=== PATIENT | female | born 1990 | race Caucasian/White ===

== ENCOUNTER 2018-12-26 10:51 | Emergency (ER) | payer MEDICAID ==
[2018-12-26] MEDS ORDERED: 0.9 % SODIUM CHLORIDE 1,000 ML BAG IV ONE (11:20)
[2018-12-26] MEDS ORDERED: ONDANSETRON HCL IV 4 MG/2 ML VIAL IVP ONE (11:20)
--- NOTE | 2018-12-26 11:24 | Emergency Department Record ---
History of Present Illness - General Chief complaint: Female Urogenital Problem Stated complaint: UTI/SINUS Time Seen by Provider: 12/26/18 10:57 Source: Patient Mode of Arrival: Ambulatory Limitations: No limitations - History of Present Illness Initial comments: 28 yo female presents with nausea, vomiting and diarrhea two days. He has had congestion, runny nose, and cough. She was treated in the [facility] but she continues to vomit and the diarrhea is new this morning. No fever. Mild headache. No sore throat. She had a bloody nose that resolved. Her ear still feel full and congested. Onset/Timin -: Days(s) Radiation: Other Severity: Moderate Quality: Other Improves with: None Worsens with: None Associated Symptoms: Abdominal pain, Loss of appetite, Nausea/vomiting, Other (diarrhea) - Related Data Previous Rx's Medication Instructions Recorded Ondansetron [Zofran Odt] 4 mg PO Q8H #20 tab.rapdis 12/26/18 Allergies Allergy/AdvReac Type Severity Reaction Status Date / Time red dye Allergy rash Verified 12/26/18 10:59 acetaminophen [From Tylenol] AdvReac vomiting Verified 12/26/18 10:59 Travel Screening - Travel/Exposure Within Last 30 Days Have you traveled within the last 30 days?: No Review of Systems Constitutional: Reports: Malaise, Weakness. Denies: Chills Eyes: Denies: Eye discharge, Eye pain, Photophobia, Vision change ENT: Reports: Congestion, Ear pain. Denies: Throat pain Respiratory: Reports: Cough. Denies: Dyspnea, Hemoptysis, Stridor, Wheezes Cardiovascular: Denies: Chest pain, Dyspnea on exertion, Palpitations, Syncope Endocrine: Reports: Fatigue. Denies: Polydipsia, Polyuria Gastrointestinal: Reports: Diarrhea, Nausea, Vomiting. Denies: Abdominal pain, Constipation, Hematemesis, Hematochezia, Melena Genitourinary: Reports: Dysuria. Denies: Urgency Musculoskeletal: Denies: Arthralgia, Back pain, Myalgia Skin: Denies: Bruising, Change in color, Rash Neurological: Reports: Headache, Vertigo. Denies: Confusion, Numbness, Tingling, Tremors, Weakness Psychiatric: Denies: Anxiety Hematological/Lymphatic: Denies: Blood Clots, Easy bleeding, Easy bruising, Swollen glands Past Medical History - SOCIAL HISTORY Smoking Status: Current every day smoker Alcohol Use: None Drug Use: None - RESPIRATORY Hx Respiratory Disorders: No - CARDIOVASCULAR Hx Cardio Disorders: No - NEURO Hx Neuro Disorders: No - GI Hx GI Disorders: Yes Hx Abdominal Pain: Yes - Hx Genitourinary Disorders: Yes Hx UTI: Yes - ENDOCRINE Hx Endocrine Disorders: No - MUSCULOSKELETAL Hx Musculoskeletal Disorders: Yes - PSYCH Hx Psych Problems: No - HEMATOLOGY/ONCOLOGY Hx Hematology/Oncology Disorders: No Family Medical History Any Significant Family History?: Yes Hx Cancer: Mother, Grandparents Physical Exam - General General Appearance: Alert, Oriented x3, Cooperative, No acute distress Limitations: No limitations - Head Head exam: Atraumatic, Normal inspection - Eye Eye exam: Normal appearance, PERRL. negative: Conjunctival injection, Scleral icterus - ENT ENT exam: Mucous membranes dry, Normal orophraynx, TM's normal bilaterally Ear exam: Normal external inspection Nasal Exam: Discharge, Sinus tenderness. negative: Active bleeding, Dried blood Mouth exam: Normal external inspection Teeth exam: Normal inspection Throat exam: Normal inspection. negative: Tonsillar erythema, Tonsillomegaly, Tonsillar exudate, R peritonsillar mass, L peritonsillar mass - Neck Neck exam: Normal inspection. negative: Lymphadenopathy - Respiratory Respiratory exam: Normal lung sounds bilaterally. negative: Respiratory distress - Cardiovascular Cardiovascular Exam: Regular rate, Normal rhythm, Normal heart sounds - GI/Abdominal GI/Abdominal exam: Soft. negative: Tenderness - Rectal Rectal exam: Deferred - exam: Deferred - Extremities Extremities exam: Normal inspection. negative: Calf tenderness, Pedal edema, Tenderness - Back Back exam: Denies: CVA tenderness (R), CVA tenderness (L) - Neurological Neurological exam: Alert, Oriented X3 - Psychiatric Psychiatric exam: Normal affect, Normal mood - Skin Skin exam: Dry, Intact, Normal color, Warm Course Vital Signs 12/26/18 10:54 Temperature 97.6 F Pulse Rate 75 Respiratory 18 Rate Blood Pressure 111/74 Pulse Ox 99 - Reevaluation(s) Reevaluation #1: The vitals are normal on review 12/26/18 11:23 12/26/18 13:05 The labs results were reviewed There are no acute significant abnormalities of the CBC There are no acute significant abnormalities of the CMP The UA was reviewed. No signs of infection or significant acute abnormality We discussed the results of the tests and questions were answered at the time of discharge. The patient is doing well and is comfortable with DC. DC vitals were reviewed. We discussed at length reasons to immediately return to the ED as well as close follow up. The patient will call the PCP for close follow up of this ED visit to review this visit and the tests performed Medical Decision Making - Lab Data Result diagrams: 12/26/18 11:25 12/26/18 11:25 Disposition Disposition: Discharge Clinical Impression: Vomiting and diarrhea Disposition: Home, Self-Care Condition: (1) Good Instructions: Acute Nausea and Vomiting (ED), Acute Diarrhea (ED) Additional Instructions: Call your doctor for the next available follow up appointment Review this ER visit and the tests performed with your family doctor Return to the ER for a recheck if worse, any new concerns or questions Take the prescriptions provided as directed Prescriptions: Ondansetron [Zofran Odt] 4 mg PO Q8H #20 tab.rapdis Forms: Patient Portal Access Time of Disposition: 13:04 Quality - Quality Measures Quality Measures: N/A - Blood Pressure Screening Does Patient Have Any of the Following: No Blood Pressure Classification: Normal BP Reading Systolic Measurement: 111 Diastolic Measurement: 74 Screening for High Blood Pressure: < Normal BP, F/U Not Required > [G8783] Pre-Hypertensive Follow-up Interventions: Referral to alternative/primary care provider.
[2018-12-26 11:35] LABS: ABSOLUTE NEUTROPHIL COUNT 4.34; BASO % 0.3 % (0-6); EOS % 1.2 % (0-6); GRAN % 65.3 % (47-80); HEMATOCRIT 45.9 % (35.0-47.0); LYMPH % 28.2 % (16-45); MEAN CELL VOLUME 86.1 fl (81-97); MEAN CORPUSCULAR HEMOGLOBIN 28.1 pg (27-33); MEAN CORPUSCULAR HGB CONC 32.7 g/dl (32-36); PLATELET COUNT 258 K/uL (130-400); RED BLOOD COUNT 5.33 M/uL (3.80-5.40); RED CELL DISTRIBUTION WIDTH 12.9 % (11.5-14.5); WHITE BLOOD COUNT W/O DIFF 6.6 K/uL (4.2-12.2)
[2018-12-26 11:48] LABS: BLOOD UREA NITROGEN 7 mg/dL (6-20); CREATININE 0.9 mg/dL (0.5-0.9); EST GLOMERULAR FILTRATION RATE > 60 mL/min
[2018-12-26 11:49] LABS: TOTAL PROTEIN 8.2 g/dL (6.6-8.7)
[2018-12-26 11:51] LABS: GLUCOSE,RANDOM 97 mg/dL (74-109)
[2018-12-26 11:54] LABS: ALB/GLOB RATIO 1.2 (1.1-1.8); ALBUMIN 4.5 g/dL (4.0-5.0); ALKALINE PHOSPHATASE 66 U/L (35-104); ALT/SGPT 16 U/L (<33); AST/SGOT 17 U/L (10.0-35.0)
[2018-12-26 12:49] LABS: URINE APPEARANCE CLEAR; URINE BILIRUBIN NEGATIVE (NEGATIVE); URINE BLOOD NEGATIVE (NEGATIVE); URINE COLOR YELLOW; URINE GLUCOSE (UA) NEGATIVE (NEGATIVE); URINE KETONE NEGATIVE (NEGATIVE); URINE LEUKOCYTE ESTERASE NEGATIVE (NEGATIVE); URINE NITRITE NEGATIVE (NEGATIVE); URINE PROTEIN NEGATIVE (NEGATIVE); URINE UROBILINOGEN 0.2 E.U./dL (0.20 - 1.00)
== END 2018-12-26 13:18 | disposition home or self-care (01) ==
LOC: ER 10:51
DX: R11.2 Nausea with vomiting, unspecified (principal); R19.7 Diarrhea, unspecified; R05 Cough; R51 Headache; R10.9 Unspecified abdominal pain; F17.210 Nicotine dependence, cigarettes, uncomplicated
CPT/HCPCS: 99284 ×2; 96374; 96361; 85025; 80053; 81003; J2405; J7030

== ENCOUNTER 2018-12-28 12:05 | Emergency (ER) | payer MEDICAID ==
--- NOTE | 2018-12-28 12:16 | Emergency Department Record ---
History of Present Illness - General Chief complaint: Vomiting Stated complaint: VOMITING Time Seen by Provider: 12/28/18 12:12 Source: Patient, Family (mother) Mode of Arrival: Ambulatory Limitations: No limitations - History of Present Illness Initial comments: Pt to ED with her mother for a 10 day hx of vomiting. Pt states she vomits many times a day "white frothy acid tasting vomit". No blood in emesis. No diarrhea, no fever. No AP. Pt denies travel, new foods, new meds. She has no hx of DM. She does suffer with Fibromyalgia and "acid reflux". She has a recent non productive cough and admits to smoking 2-3 cigarettes a day along with marijuana twice a day for her Fibro pain. Pt seen her twice this week with IV and labs. Improved with IV fluids but hte Fátimafran is not helping at home. She has not followed with a family doctor since her visits. MD complaint: Vomiting Onset/Timin -: Days(s) Associated Abdominal Pain: No Consistency: Intermittent - Related Data Previous Rx's Medication Instructions Recorded Promethazine HCl [Phenergan] 25 mg RC TID PRN 4 Days #8 12/28/18 supp.rect Ranitidine HCl [Zantac] 150 mg PO BID 30 Days #60 tab 12/28/18 Allergies Allergy/AdvReac Type Severity Reaction Status Date / Time red dye Allergy rash Verified 12/26/18 10:59 acetaminophen [From Tylenol] AdvReac vomiting Verified 12/26/18 10:59 Review of Systems Constitutional: Denies: Chills, Fever, Weakness Eyes: Denies: Eye discharge, Photophobia ENT: Denies: Congestion, Ear pain Respiratory: Reports: Cough. Denies: Hemoptysis, Wheezes Cardiovascular: Denies: Arrhythmia, Chest pain, Syncope Endocrine: Denies: Fatigue, Polyuria Gastrointestinal: Reports: Nausea, Vomiting. Denies: Abdominal pain, Constipation, Diarrhea, Hematemesis Genitourinary: Denies: Abnormal menses Musculoskeletal: Denies: Back pain, Gout, Joint swelling Skin: Denies: Bruising, Rash Neurological: Denies: Confusion, Headache, Weakness Psychiatric: Denies: Anxiety, Depression Hematological/Lymphatic: Denies: Anemia Past Medical History - SOCIAL HISTORY Smoking Status: Current every day smoker Drug Use: None - RESPIRATORY Hx Respiratory Disorders: No - CARDIOVASCULAR Hx Cardio Disorders: No - NEURO Hx Neuro Disorders: No - GI Hx GI Disorders: Yes Hx Abdominal Pain: Yes - Hx Genitourinary Disorders: Yes Hx UTI: Yes - ENDOCRINE Hx Endocrine Disorders: No - MUSCULOSKELETAL Hx Musculoskeletal Disorders: Yes - PSYCH Hx Psych Problems: No - HEMATOLOGY/ONCOLOGY Hx Hematology/Oncology Disorders: No Family Medical History Hx Cancer: Mother, Grandparents Physical Exam - General General Appearance: Alert, Oriented x3, Cooperative, No acute distress - Head Head exam: Normal inspection - Eye Eye exam: Normal appearance, PERRL - ENT ENT exam: Mucous membranes moist Ear exam: Normal external inspection Nasal Exam: Normal inspection Mouth exam: Normal external inspection Throat exam: Normal inspection - Neck Neck exam: Normal inspection, Full ROM. negative: Lymphadenopathy - Respiratory Respiratory exam: Normal lung sounds bilaterally. negative: Rhonchi, Wheezes - Cardiovascular Cardiovascular Exam: Regular rate, Normal rhythm, Normal heart sounds. negative: Tachycardia - GI/Abdominal GI/Abdominal exam: Soft, Normal bowel sounds. negative: Guarding, Rebound, Tenderness - Extremities Extremities exam: Normal inspection. negative: Tenderness - Back Back exam: Reports: Normal inspection - Neurological Neurological exam: Alert, Normal gait, Oriented X3 - Psychiatric Psychiatric exam: Normal affect, Normal mood - Skin Skin exam: Normal color. negative: Rash Course - Reevaluation(s) Reevaluation #1: 12/28/18 13:10 Improved with phenergan. Discussed taking Zantac for reflux and clear liquid diet. Discussed need to establish a PMD and follow with them to provide continuity of care. Disposition Disposition: Discharge Clinical Impression: Vomiting alone Condition: (2) Stable Instructions: Acute Nausea and Vomiting (ED) Additional Instructions: Take meds a prescribed. Clear liquid diet advancing as tolerated. Establish a family doctor and see them in 2 days. Return to ED as needed. Prescriptions: Promethazine HCl [Phenergan] 25 mg RC TID PRN 4 Days #8 supp.rect PRN Reason: Nausea/Vomiting Ranitidine HCl [Zantac] 150 mg PO BID 30 Days #60 tab Forms: Patient Portal Access Quality - Quality Measures Quality Measures: N/A - Blood Pressure Screening Does Patient Have Any of the Following: No Blood Pressure Classification: Normal BP Reading Systolic Measurement: 116 Diastolic Measurement: 75 Screening for High Blood Pressure: < Normal BP, F/U Not Required > [G8783]
[2018-12-28] MEDS ORDERED: PROMETHAZINE HCL 25 MG/ML VIAL IM ONE (12:30)
== END 2018-12-28 13:22 | disposition home or self-care (01) ==
LOC: ER 12:05
DX: R11.10 Vomiting, unspecified (principal); F17.210 Nicotine dependence, cigarettes, uncomplicated
CPT/HCPCS: 96372; 99282; 99283; J2550

== ENCOUNTER 2019-01-18 14:58 | Emergency (ER) | payer MEDICAID ==
[2019-01-18] MEDS ORDERED: ONDANSETRON HCL IV 4 MG/2 ML VIAL IV ONE (15:14)
[2019-01-18] MEDS ORDERED: 0.9 % SODIUM CHLORIDE 1,000 ML BAG IV ONE (15:14)
--- NOTE | 2019-01-18 15:24 | Emergency Department Record ---
History of Present Illness - General Chief complaint: Nausea, Vomiting, Diarrhea Stated complaint: NAUSEA,VOMITING,LIGHTHEADED Time Seen by Provider: 01/18/19 15:07 Source: Patient Mode of Arrival: Ambulatory Limitations: No limitations - History of Present Illness Initial comments: The patient is here due to intermittent nausea, vomiting, diarrhea, and cramping AP for 4 days. She has had similar issues off and on for a month and was here in the ER twice for it last month. She denies any fever, chills, CP, SOB, vaginal discharge or dysuria. She has no hx of any abdominal surgeries. MD complaint: Abdominal pain, Diarrhea, Nausea, Vomiting Onset/Timin -: Days(s) Severity: Moderate Severity scale (1-10): 7 Quality: Aching Consistency: Constant, Intermittent Improves with: None Worsens with: None - Related Data Previous Rx's Medication Instructions Recorded Ranitidine HCl [Zantac] 150 mg PO BID 30 Days #60 tab 12/28/18 Promethazine HCl 25 mg RC TID #20 supp.rect 01/18/19 Ranitidine HCl [Zantac] 150 mg PO BID #28 tablet 01/18/19 Allergies Allergy/AdvReac Type Severity Reaction Status Date / Time red dye Allergy rash Verified 01/18/19 15:11 acetaminophen [From Tylenol] AdvReac vomiting Verified 01/18/19 15:11 Travel Screening - Travel/Exposure Within Last 30 Days Have you traveled within the last 30 days?: No - Travel/Exposure Within Last Year Have you traveled outside the [place] in the last year?: No - Additonal Travel Details Have you been exposed to anyone with a communicable illness?: No - Travel Symptoms Symptom Screening: None Review of Systems Constitutional: Denies: Chills, Fever Eyes: Denies: Eye discharge ENT: Denies: Congestion Respiratory: Denies: Cough, Dyspnea Past Medical History - SOCIAL HISTORY Smoking Status: Current every day smoker Alcohol Use: None Drug Use: None - RESPIRATORY Hx Respiratory Disorders: No - CARDIOVASCULAR Hx Cardio Disorders: No - NEURO Hx Neuro Disorders: No - GI Hx GI Disorders: Yes Hx Abdominal Pain: Yes Hx Nausea/Vomiting: Yes - Hx Genitourinary Disorders: Yes Hx UTI: Yes - ENDOCRINE Hx Endocrine Disorders: No - MUSCULOSKELETAL Hx Musculoskeletal Disorders: Yes - PSYCH Hx Psych Problems: No - HEMATOLOGY/ONCOLOGY Hx Hematology/Oncology Disorders: No Family Medical History Any Significant Family History?: Yes Hx Cancer: Mother, Grandparents Physical Exam - General General Appearance: Alert, Oriented x3, Cooperative, No acute distress - Head Head exam: Atraumatic, Normocephalic, Normal inspection - Eye Eye exam: Normal appearance, PERRL, EOMI - ENT Throat exam: Normal inspection. negative: Tonsillar erythema, Tonsillar exudate - Neck Neck exam: Normal inspection, Full ROM. negative: Tenderness - Respiratory Respiratory exam: Normal lung sounds bilaterally. negative: Respiratory dis tress - Cardiovascular Cardiovascular Exam: Regular rate - GI/Abdominal GI/Abdominal exam: Soft, Normal bowel sounds. negative: Distended, Guarding, Rebound, Rigid, Tenderness - Extremities Extremities exam: Normal inspection, Full ROM, Normal capillary refill. negative: Tenderness - Back Back exam: Reports: Normal inspection - Neurological Neurological exam: Alert, Normal gait, Oriented X3. negative: Abnormal gait, Altered, Motor sensory deficit - Psychiatric Psychiatric exam: negative: Anxious Course Vital Signs 01/18/19 15:02 Temperature 97.7 F Pulse Rate 61 Respiratory 16 Rate Blood Pressure 111/71 Pulse Ox 99 - Reevaluation(s) Reevaluation #1: The patient is feeling better at this time. She denies any pain at this time and has no nausea. She is drinking water and keeping it down. I did discuss the need for F/U with her PCP for this and to return to the ER for any worsening symptoms. 01/18/19 16:26 Medical Decision Making - Lab Data Result diagrams: 01/18/19 15:30 01/18/19 15:30 Disposition Disposition: Discharge Clinical Impression: Vomiting and diarrhea Disposition: Home, Self-Care Condition: (2) Stable Instructions: Acute Nausea and Vomiting (ED) Additional Instructions: Please drink only clear liquids for 6 hours then slowly increase your diet. Take the Carafate and Promethazine as directed. Please see your family doctor for recheck later this week and return to the ER for any worsening symptoms. Prescriptions: Promethazine HCl 25 mg RC TID #20 supp.rect Ranitidine HCl [Zantac] 150 mg PO BID #28 tablet Forms: Patient Portal Access Time of Disposition: 16:31 Quality - Quality Measures Quality Measures: N/A - Blood Pressure Screening View Details: Yes Does Patient Have Any of the Following: No Blood Pressure Classification: Normal BP Reading Systolic Measurement: 111 Diastolic Measurement: 71 Screening for High Blood Pressure: < Normal BP, F/U Not Required > [G7873]
[2019-01-18] MEDS: ONDANSETRON 4 MG ODT TABLET SL ONE (15:25)
[2019-01-18 15:34] LABS: ABSOLUTE NEUTROPHIL COUNT 4.85; BASO % 0.5 % (0-6); EOS % 1.7 % (0-6); HEMOGLOBIN 14.7 gm/dl (11.6-16.0); LYMPH % 34.1 % (16-45); MEAN CELL VOLUME 88.2 fl (81-97); MEAN CORPUSCULAR HEMOGLOBIN 29.5 pg (27-33); MEAN CORPUSCULAR HGB CONC 33.4 g/dl (32-36); MONO % 4.7 % (0-9); PLATELET COUNT 230 K/uL (130-400); RED BLOOD COUNT 4.99 M/uL (3.80-5.40); RED CELL DISTRIBUTION WIDTH 13.5 % (11.5-14.5); WHITE BLOOD COUNT W/O DIFF 8.2 K/uL (4.2-12.2)
[2019-01-18 15:45] LABS: BLOOD UREA NITROGEN 8 mg/dL (6-20); CREATININE 0.8 mg/dL (0.5-0.9); EST GLOMERULAR FILTRATION RATE > 60 mL/min
[2019-01-18 15:46] LABS: LIPASE 21 U/L (13-60); TOTAL PROTEIN 7.8 g/dL (6.6-8.7)
[2019-01-18 15:48] LABS: GLUCOSE,RANDOM 88 mg/dL (74-109)
[2019-01-18 15:50] LABS: ALT/SGPT 14 U/L (<33); AST/SGOT 13 U/L (10.0-35.0)
[2019-01-18 15:51] LABS: ALBUMIN 4.4 g/dL (4.0-5.0); ALKALINE PHOSPHATASE 64 U/L (35-104)
[2019-01-18 15:55] LABS: BILIRUBIN,DIRECT < 0.2 mg/dL (0-0.3)
[2019-01-18 16:00] LABS: HCG,QUALITATIVE URINE NEGATIVE (NEGATIVE); URINE APPEARANCE CLEAR; URINE BILIRUBIN NEGATIVE (NEGATIVE); URINE BLOOD NEGATIVE (NEGATIVE); URINE COLOR YELLOW; URINE GLUCOSE (UA) NEGATIVE (NEGATIVE); URINE KETONE NEGATIVE (NEGATIVE); URINE LEUKOCYTE ESTERASE NEGATIVE (NEGATIVE); URINE NITRITE NEGATIVE (NEGATIVE); URINE PROTEIN NEGATIVE (NEGATIVE); URINE UROBILINOGEN 0.2 E.U./dL (0.20 - 1.00)
[2019-01-18] MEDS: SUCRALFATE 1 G/10 ML UD PO ONE (16:16)
== END 2019-01-18 16:42 | disposition home or self-care (01) ==
LOC: ER 14:58
DX: R11.2 Nausea with vomiting, unspecified (principal); R42 Dizziness and giddiness; R19.7 Diarrhea, unspecified; F17.200 Nicotine dependence, unspecified, uncomplicated
CPT/HCPCS: 80048; 80076; 81003; 81025; 83690; 85025; 99284

== ENCOUNTER 2019-01-24 23:26 | Emergency (ER) | payer MEDICAID ==
[2019-01-24] MEDS ORDERED: 0.9 % SODIUM CHLORIDE 1,000 ML BAG IV ONE (23:49)
[2019-01-24] MEDS ORDERED: ONDANSETRON HCL IV 4 MG/2 ML VIAL IVP ONE (23:51)
--- NOTE | 2019-01-25 00:04 | Emergency Department Record ---
History of Present Illness - General Chief complaint: Vomiting Stated complaint: FAINT,VOMMITING Time Seen by Provider: 01/24/19 23:38 Source: Patient, Family Mode of Arrival: Ambulatory Limitations: No limitations - History of Present Illness Initial comments: pt has ecchymosis in her left antecubital fossa from iv last week .when she was rubbing it she became nauseated and vomited and felt lightheaded. MD complaint: Nausea, Vomiting Onset/Timin -: Days(s) Consistency: Intermittent Improves with: None Worsens with: None Associated Symptoms: Nausea/vomiting, Weakness - Related Data Previous Rx's Medication Instructions Recorded Ranitidine HCl [Zantac] 150 mg PO BID 30 Days #60 tab 12/28/18 Promethazine HCl 25 mg RC TID #20 supp.rect 01/18/19 Allergies Allergy/AdvReac Type Severity Reaction Status Date / Time red dye Allergy rash Verified 01/18/19 15:11 acetaminophen [From Tylenol] AdvReac vomiting Verified 01/18/19 15:11 Travel Screening - Travel/Exposure Within Last 30 Days Have you traveled within the last 30 days?: No Review of Systems Reviewed: No additional complaints except as noted below Constitutional: Reports: As per HPI. Denies: Chills, Fever, Malaise, Night sweats, Weakness, Weight change Eyes: Reports: As per HPI. Denies: Eye discharge, Eye pain, Photophobia, Vision change ENT: Reports: As per HPI. Denies: Congestion, Dental pain, Ear pain, Epistaxis, Hearing loss, Throat pain Respiratory: Reports: As per HPI. Denies: Cough, Dyspnea, Hemoptysis, Stridor, Wheezes Cardiovascular: Reports: As per HPI. Denies: Arrhythmia, Chest pain, Dyspnea on exertion, Edema, Murmurs, Orthopnea, Palpitations, Paroxysmal nocturnal dyspnea, Rheumatic Fever, Syncope Endocrine: Reports: As per HPI. Denies: Fatigue, Heat or cold intolerance, Polydipsia, Polyuria Gastrointestinal: Reports: As per HPI. Denies: Abdominal pain, Constipation, Diarrhea, Hematemesis, Hematochezia, Melena, Nausea, Vomiting Genitourinary: Reports: As per HPI. Denies: Abnormal menses, Discharge, Dyspareunia, Dysuria, Frequency, Hematuria, Incontinence, Retention, Urgency Musculoskeletal: Reports: As per HPI. Denies: Arthralgia, Back pain, Gout, J oint swelling, Myalgia, Neck pain Skin: Reports: As per HPI. Denies: Bruising, Change in color, Change in hair/nails, Lesions, Pruritus, Rash Neurological: Reports: As per HPI. Denies: Abnormal gait, Confusion, Headache, Numbness, Paresthesias, Seizure, Tingling, Tremors, Vertigo, Weakness Psychiatric: Reports: As per HPI. Denies: Anxiety, Auditory hallucinations, Depression, Homicidal thoughts, Suicidal thoughts, Visual hallucinations Hematological/Lymphatic: Reports: As per HPI. Denies: Anemia, Blood Clots, Easy bleeding, Easy bruising, Swollen glands Past Medical History - SOCIAL HISTORY Smoking Status: Current every day smoker Alcohol Use: None Drug Use: None - RESPIRATORY Hx Respiratory Disorders: No - CARDIOVASCULAR Hx Cardio Disorders: No - NEURO Hx Neuro Disorders: No - GI Hx GI Disorders: Yes Hx Abdominal Pain: Yes Hx Nausea/Vomiting: Yes - Hx Genitourinary Disorders: Yes Hx UTI: Yes - ENDOCRINE Hx Endocrine Disorders: No - MUSCULOSKELETAL Hx Musculoskeletal Disorders: Yes - PSYCH Hx Psych Problems: No - HEMATOLOGY/ONCOLOGY Hx Hematology/Oncology Disorders: No Family Medical History Any Significant Family History?: Yes Hx Cancer: Mother, Grandparents Physical Exam - General General Appearance: Alert, Oriented x3, Cooperative, No acute distress - Head Head exam: Normal inspection - Eye Eye exam: Normal appearance, PERRL, EOMI Pupils: Normal accommodation - ENT ENT exam: Normal exam, Mucous membranes moist, Normal external ear exam, Normal orophraynx Ear exam: Normal external inspection. negative: External canal tenderness Nasal Exam: Normal inspection. negative: Discharge, Sinus tenderness Mouth exam: Normal external inspection, Tongue normal Teeth exam: Normal inspection. negative: Dental caries Throat exam: Normal inspection. negative: Tonsillar erythema, Tonsillar exudate - Neck Neck exam: Normal inspection, Full ROM. negative: Tenderness - Respiratory Respiratory exam: Normal lung sounds bilaterally. negative: Respiratory d istress - Cardiovascular Cardiovascular Exam: Regular rate, Normal rhythm, Normal heart sounds - GI/Abdominal GI/Abdominal exam: Soft, Normal bowel sounds. negative: Tenderness - Rectal Rectal exam: Deferred - exam: Deferred - Extremities Extremities exam: Normal inspection, Full ROM, Normal capillary refill. negative: Tenderness - Back Back exam: Reports: Normal inspection, Full ROM. Denies: Muscle spasm, Rash noted, Tenderness - Neurological Neurological exam: Alert, CN II-XII intact, Normal gait, Oriented X3 - Psychiatric Psychiatric exam: Normal affect, Normal mood - Skin Skin exam: Dry, Intact, Normal color, Warm, Other (ecchymosis) Distribution of rash: LUE Course Vital Signs 01/24/19 23:34 Temperature 98.2 F Pulse Rate [ 73 Left] Respiratory 16 Rate Blood Pressure 102/71 [Left Arm] Pulse Ox 97 - Reevaluation(s) Reevaluation #1: 01/25/19 01:10 pt feels better Medical Decision Making - Lab Data Result diagrams: 01/24/19 00:04 01/24/19 00:04 Disposition Disposition: Discharge Clinical Impression: Light-headed feeling Vomiting Qualifiers: Vomiting type: unspecified Vomiting Intractability: non-intractable Nausea presence: with nausea Qualified Code(s): R11.2 - Nausea with vomiting, unspecified Disposition: Home, Self-Care Condition: (1) Good Instructions: Acute Nausea and Vomiting (ED) Additional Instructions: follow up with family doctor. return sooner if worse. dont push on bruise. Forms: Patient Portal Access Quality - Quality Measures Quality Measures: N/A - Blood Pressure Screening Does Patient Have Any of the Following: No Blood Pressure Classification: Normal BP Reading Systolic Measurement: 102 Diastolic Measurement: 71 Screening for High Blood Pressure: < Normal BP, F/U Not Required > [G8783]
[2019-01-25 00:09] LABS: ABSOLUTE NEUTROPHIL COUNT 5.27; BASO % 0.4 % (0-6); EOS % 2.4 % (0-6); GRAN % 54.5 % (47-80); HEMATOCRIT 45.5 % (35.0-47.0); HEMOGLOBIN 14.8 gm/dl (11.6-16.0); LYMPH % 38.4 % (16-45); MEAN CELL VOLUME 88.2 fl (81-97); MEAN CORPUSCULAR HEMOGLOBIN 28.7 pg (27-33); MEAN CORPUSCULAR HGB CONC 32.5 g/dl (32-36); MEAN PLATELET VOLUME 10.4 fl (7.4-10.4); MONO % 4.3 % (0-9); PLATELET COUNT 226 K/uL (130-400); RED BLOOD COUNT 5.16 M/uL (3.80-5.40); RED CELL DISTRIBUTION WIDTH 13.4 % (11.5-14.5); WHITE BLOOD COUNT W/O DIFF 9.7 K/uL (4.2-12.2)
[2019-01-25 00:18] LABS: BLOOD UREA NITROGEN 9 mg/dL (6-20); CREATININE 0.8 mg/dL (0.5-0.9); EST GLOMERULAR FILTRATION RATE > 60 mL/min
[2019-01-25 00:19] LABS: TOTAL PROTEIN 8.1 g/dL (6.6-8.7)
[2019-01-25 00:21] LABS: GLUCOSE,RANDOM 99 mg/dL (74-109)
[2019-01-25 00:23] LABS: ALB/GLOB RATIO 1.3 (1.1-1.8); ALBUMIN 4.6 g/dL (4.0-5.0); ALKALINE PHOSPHATASE 72 U/L (35-104); ALT/SGPT 23 U/L (<33); AST/SGOT 20 U/L (10.0-35.0)
[2019-01-25 00:49] LABS: URINE APPEARANCE CLEAR; URINE BILIRUBIN SMALL (NEGATIVE); URINE COLOR YELLOW; URINE GLUCOSE (UA) NEGATIVE (NEGATIVE); URINE KETONE TRACE (NEGATIVE)
[2019-01-25 00:50] LABS: HCG,QUALITATIVE URINE NEGATIVE (NEGATIVE); URINE BLOOD NEGATIVE (NEGATIVE); URINE LEUKOCYTE ESTERASE NEGATIVE (NEGATIVE); URINE NITRITE NEGATIVE (NEGATIVE)
== END 2019-01-25 01:25 | disposition home or self-care (01) ==
LOC: ER 23:26
DX: R42 Dizziness and giddiness (principal); R11.2 Nausea with vomiting, unspecified; R53.1 Weakness; F17.210 Nicotine dependence, cigarettes, uncomplicated
CPT/HCPCS: 80053; 81003; 81025; 85025; 96374; 99284; J2405; J7030

== ENCOUNTER 2019-02-24 14:28 | Emergency (ER) | payer MEDICAID ==
--- NOTE | 2019-02-24 16:29 | Emergency Department Record ---
Anxiety - General Chief Complaint: Anxiety Stated Complaint: ANXIETY,ANGER ISSUES Time Seen by Provider: 02/24/19 15:55 Source: Patient, Family Mode of Arrival: Ambulatory Limitations: No limitations - History of Present Illness Initial Comments: The patient is here due to becoming very anxious and angry towards her brothers debbie who she lives with. She does not get along with her and has had shouting episodes with her. The patient is not suicidal or homicidal but just wants medicine to calm her down. The patient no longer is seeing her PCP and is in the process of looking for another one. Due to not having a provider to access medicines she decided to come to the ER. MD Complaint: Anxiety Onset/Timin -: Month(s) Place: Home Quality: Intermittant Provoking factors: Other Improves With: Nothing Worsens With: Other - Related Data Home Medications: Home Medications Medication Instructions Recorded Confirmed Last Taken Omeprazole 20 mg PO DAILY 02/24/19 02/24/19 02/24/19 Allergies/Adverse Reactions: Allergies Allergy/AdvReac Type Severity Reaction Status Date / Time red dye Allergy rash Unverified 01/27/19 14:10 acetaminophen [From Tylenol] AdvReac vomiting Verified 01/18/19 15:11 Travel Screening - Travel/Exposure Within Last 30 Days Have you traveled within the last 30 days?: No - Travel/Exposure Within Last Year Have you traveled outside the [place] in the last year?: No - Additonal Travel Details Have you been exposed to anyone with a communicable illness?: No - Travel Symptoms Symptom Screening: None Review of Systems Constitutional: Denies: Chills, Fever Eyes: Denies: Eye discharge ENT: Denies: Congestion Respiratory: Denies: Cough, Dyspnea Cardiovascular: Denies: Chest pain Endocrine: Denies: Fatigue Past Medical History - SOCIAL HISTORY Smoking Status: Current every day smoker Alcohol Use: None Drug Use: Heavy Drug Use Detail:: Marijuana - RESPIRATORY Hx Respiratory Disorders: No - CARDIOVASCULAR Hx Cardio Disorders: No - NEURO Hx Neuro Disorders: No - GI Hx GI Disorders: Yes Hx Abdominal Pain: Yes Hx Nausea/Vomiting: Yes - Hx Genitourinary Disorders: Yes Hx UTI: Yes - ENDOCRINE Hx Endocrine Disorders: No - MUSCULOSKELETAL Hx Musculoskeletal Disorders: Yes - PSYCH Hx Psych Problems: No - HEMATOLOGY/ONCOLOGY Hx Hematology/Oncology Disorders: No Family Medical History Any Significant Family History?: Yes Hx Cancer: Mother, Grandparents Physical Exam - General General Appearance: Alert, Oriented x3, Cooperative, No acute distress - Head Head exam: Atraumatic, Normocephalic, Normal inspection - Eye Eye exam: Normal appearance, PERRL - Neck Neck exam: Normal inspection, Full ROM. negative: Tenderness - Respiratory Respiratory exam: Normal lung sounds bilaterally. negative: Respiratory distress - Cardiovascular Cardiovascular Exam: Regular rate, Normal rhythm, Normal heart sounds. negative: Diastolic murmur, Systolic murmur - GI/Abdominal GI/Abdominal exam: Soft, Normal bowel sounds. negative: Tenderness - Extremities Extremities exam: Normal inspection, Full ROM, Normal capillary refill. negative: Tenderness - Neurological Neurological exam: Alert, Normal gait. negative: Abnormal gait, Motor sensory deficit - Psychiatric Psychiatric exam: negative: Agitated, Anxious, Depressed, Flat affect, Homicidal ideation, Suicidal ideation Course Vital Signs 02/24/19 15:48 Temperature 98.4 F Pulse Rate 64 Respiratory 20 Rate Blood Pressure 113/74 Pulse Ox 96 - Reevaluation(s) Reevaluation #1: I did explain to the patient that I do not provide any prescriptions for anxiety but can help her with 2 Ativan pills for home. I instructed her to find a different living arrangement and to proceed to Emergency Services at [facility] to discuss her issues. Since she is very calm and clearly not suicidal or homicidal I do feel she is safe for discharge. 02/24/19 16:30 Disposition Disposition: Discharge Clinical Impression: Anxiety Disposition: Home, Self-Care Condition: (2) Stable Instructions: Social Anxiety Disorder (ED) Additional Instructions: Please proceed to Emergency Services at [facility] in [facility]. Please take the Ativan if needed and try to find a different place to stay for a few days. Also please see your family doctor for recheck and to possibly be placed on medicines for mood stabilization. Forms: Patient Portal Access Time of Disposition: 16:33 Quality - Quality Measures Quality Measures: N/A - Blood Pressure Screening View Details: Yes Does Patient Have Any of the Following: No Blood Pressure Classification: Normal BP Reading Systolic Measurement: 113 Diastolic Measurement: 74 Screening for High Blood Pressure: < Normal BP, F/U Not Required > [G8783]
[2019-02-24] MEDS ORDERED: LORAZEPAM 0.5 MG TABLET PO ONE (16:33)
== END 2019-02-24 16:51 | disposition home or self-care (01) ==
LOC: ER 14:28
DX: F41.0 Panic disorder [episodic paroxysmal anxiety] (principal); F17.210 Nicotine dependence, cigarettes, uncomplicated
CPT/HCPCS: 99282; 99283

== ENCOUNTER 2019-08-25 17:23 | Emergency (ER) | payer MEDICAID ==
--- NOTE | 2019-08-25 19:13 | Emergency Department Record ---
History of Present Illness - General Chief Complaint: General Stated Complaint: LEFT FLANK PAIN,LEFT ARM NUMBNESS,CHEST EDGAR Time Seen by Provider: 08/25/19 18:35 Source: Patient Mode of Arrival: Ambulatory Limitations: No limitations - History of Present Illness Initial comments: pt c/o numbness in her lue for 3-4 days and pain in her luq abdomen for days. she is worried that it is her spleen. she denies any injury. the numbness is from biceps to wrist on the medial aspect of the arm. pt denies leaning on elbow and has from. Onset/Timin -: Days(s) Location: Left, Upper extremity, Abdomen Quality: Constant Consistency: Constant Improves with: None Worsens with: None Associated Symptoms: Denies other symptoms - Ronald Coma Scale Eye Response: (4) Open spontaneously Motor Response: (6) Obeys commands Verbal Response: (5) Oriented [place] Total: 15 - Related Data Home Medications Medication Instructions Recorded Confirmed Last Taken No Home Med [NO HOME MEDS] 08/25/19 08/25/19 Unknown Allergies Allergy/AdvReac Type Severity Reaction Status Date / Time red dye Allergy rash Verified 08/25/19 17:30 acetaminophen [From Tylenol] AdvReac vomiting Verified 08/25/19 17:30 Travel Screening - Travel/Exposure Within Last 30 Days Have you traveled within the last 30 days?: No - Travel/Exposure Within Last Year Have you traveled outside the [place] in the last year?: No - Additonal Travel Details Have you been exposed to anyone with a communicable illness?: No - Travel Symptoms Symptom Screening: None Past Medical History - SOCIAL HISTORY Smoking Status: Current every day smoker Alcohol Use: None Drug Use: Occasional Drug Use Detail:: Marijuana - RESPIRATORY Hx Respiratory Disorders: No - CARDIOVASCULAR Hx Cardio Disorders: No - NEURO Hx Neuro Disorders: No - GI Hx GI Disorders: Yes Hx Abdominal Pain: Yes Hx Nausea/Vomiting: Yes - Hx Genitourinary Disorders: Yes Hx UTI: Yes - ENDOCRINE Hx Endocrine Disorders: No - MUSCULOSKELETAL Hx Musculoskeletal Disorders: Yes - PSYCH Hx Psych Problems: No - HEMATOLOGY/ONCOLOGY Hx Hematology/Oncology Disorders: No Family Medical History Any Significant Family History?: Yes Hx Cancer: Mother, Grandparents Course Vital Signs 08/25/19 17:32 Temperature 97.8 F Pulse Rate 80 Blood Pressure 122/73 Pulse Ox 100 - Reevaluation(s) Reevaluation #1: 08/25/19 20:30 cts negative Medical Decision Making - Lab Data Result diagrams: 08/25/19 19:14 08/25/19 19:14 Disposition Disposition: Discharge Clinical Impression: Numbness and tingling in left arm Abdominal pain Qualifiers: Abdominal location: left upper quadrant Qualified Code(s): R10.12 - Left upper quadrant pain Disposition: Home, Self-Care Condition: (1) Good Instructions: Paresthesia (ED), Acute Abdominal Pain (ED) Additional Instructions: follow up with family doctor . return sooner if worse Forms: Patient Portal Access Quality - Quality Measures Quality Measures: N/A - Blood Pressure Screening Does Patient Have Any of the Following: No Blood Pressure Classification: Pre-Hypertensive BP Reading Systolic Measurement: 122 Diastolic Measurement: 73 Screening for High Blood Pressure: < Pre-Hypertensive BP, F/U Documented > [G8950] Pre-Hypertensive Follow-up Interventions: Follow-up with rescreen every year.
[2019-08-25 19:24] LABS: ABSOLUTE NEUTROPHIL COUNT 5.33; BASO % 0.6 % (0-6); EOS % 0.9 % (0-6); GRAN % 62.8 % (47-80); HEMATOCRIT 43.6 % (35.0-47.0); HEMOGLOBIN 14.1 gm/dl (11.6-16.0); LYMPH % 30.9 % (16-45); MEAN CELL VOLUME 89.3 fl (81-97); MEAN CORPUSCULAR HEMOGLOBIN 28.9 pg (27-33); MEAN CORPUSCULAR HGB CONC 32.3 g/dl (32-36); MEAN PLATELET VOLUME 9.7 fl (7.4-10.4); MONO % 4.8 % (0-9); PLATELET COUNT 239 K/uL (130-400); RED BLOOD COUNT 4.88 M/uL (3.80-5.40); RED CELL DISTRIBUTION WIDTH 12.4 % (11.5-14.5); URINE APPEARANCE CLEAR; URINE BILIRUBIN NEGATIVE (NEGATIVE); URINE BLOOD LARGE (NEGATIVE); URINE COLOR YELLOW; URINE GLUCOSE (UA) NEGATIVE (NEGATIVE); URINE KETONE NEGATIVE (NEGATIVE); URINE LEUKOCYTE ESTERASE NEGATIVE (NEGATIVE); URINE NITRITE NEGATIVE (NEGATIVE); URINE PROTEIN NEGATIVE (NEGATIVE); URINE UROBILINOGEN 0.2 E.U./dL (0.20 - 1.00); WHITE BLOOD COUNT W/O DIFF 8.5 K/uL (4.2-12.2)
[2019-08-25 19:40] LABS: URINE EPITHELIAL CELLS 0 - 2 (FEW); URINE WBC NONE SEEN (0-2/hpf)
[2019-08-25 19:41] LABS: BLOOD UREA NITROGEN 12 mg/dL (6-20); URINE BACTERIA NONE SEEN
[2019-08-25 19:42] LABS: CREATININE 0.8 mg/dL (0.5-0.9); EST GLOMERULAR FILTRATION RATE > 60 mL/min
[2019-08-25 19:45] LABS: GLUCOSE,RANDOM 86 mg/dL (74-109)
--- NOTE | 2019-08-25 19:58 | CT SCAN REPORT ---
EXAMINATION: HEAD WO CONTRAST EXAM DATE: 08/25/2019 7:55 PM TECHNIQUE: Noncontrast axial images were obtained to the brain. INDICATION: lue numbness. Remote history of craniosynostosis COMPARISON: None. ENCOUNTER: Not applicable HAND DOMINANCE: Unknown FINDINGS: The brain parenchyma is unremarkable for age. No loss of perez-white matter differentiation or sulcal effacement to indicate acute infarction. No evidence of intracranial mass. The ventricles, sulci, and subarachnoid spaces are unremarkable for age. The basal cisterns are paten t and there is no midline shift or herniation. No intra-axial or extra-axial fluid collection. No evidence of intracranial hemorrhage. The paranasal sinuses, mastoid air cells, and orbits are unremarkable other than a left maxillary si nus mucous retention cyst. Post surgical changes of the calvarium, presumably associated with a history of craniosynostosis. Mild motion artifact IMPRESSION: 1. No CT evidence of intracranial hemorrhage or acute intracranial abnormality. 2. Post surgical changes of the calvarium, presumably related to the history of craniosynostosis 3. Mild motion artifact Dictated by: LIEN MONSALVE MD on 08/25/2019 7:54 PM. .
--- NOTE | 2019-08-25 19:59 | CT SCAN REPORT ---
EXAMINATION: CERVICAL SPINE WO CONTRAST EXAM DATE: 08/25/2019 7:55 PM TECHNIQUE: Without contrast spiral CT images were done from the foramen magnum to the upper thoracic spine. Sagittal and coronal 2-D reformats were made from source images. INDICATION: lue numbness. Paresthesias. ENCOUNTER: Initial COMPARISON: Concurrent CT of the head FINDINGS: Nonspecific straightening of the cervical spine lordosis. Vertebral body heights are preserved without evidence of acute fracture. No significant degenerative change. A hypoattenuating 14 mm right thyroid nodule is noted MR is more sensitive for soft tissue injury. IMPRESSION: 1. No evidence of fracture. 2. Nonspecific straightening of the cervical spine lordosis most commonly represents positioning or cervical strain. 3. Right thyroid nodule. Nonemergent thyroid ultrasound recommended. Dictated by: LIEN MONSALVE MD on 08/25/2019 7:56 PM. .
--- NOTE | 2019-08-25 20:15 | CT SCAN REPORT ---
EXAMINATION: CT Abdomen and Pelvis without IV Contrast EXAM DATE: 08/25/2019 7:55 PM TECHNIQUE: Standard protocol CT imaging of the abdomen and pelvis was performed without intravenous c ontrast. INDICATION: luq and llq ap COMPARISON: CT abdomen and pelvis April 25, 2016 ENCOUNTER: Not applicable CT ABDOMEN AND PELVIS FINDINGS: Lung Bases: Calcified granuloma left lung Hepatobiliary: The liver has a normal size with a smooth surface. Gallbladder is present. Pancreas: The pancreas is normal. Spleen: Tiny punctate calcifications are present. Adrenals: The adrenal glands are normal. Kidneys, Ureters, & Bladder: Both kidneys have a normal size and morphology. There is no hydronephro sis. Ureter showing normal course and caliber bilaterally and the urinary bladder is unremarkable. Gastrointestinal: The stomach and small bowel are normal with no obstruction or inflammation. Appendi x is normal. The large bowel is within normal limits. Reproductive Organs: Uterus is present. Lymphatic System: There is no adenopathy within the abdomen or pelvis. Vasculature: Normal caliber abdominal aorta Peritoneum: No free fluid, free air, or inflammation Abdominal wall & Musculoskeletal: No suspicious bone lesions. Assessment of the solid organs, soft tissues, and vascular structures is overall limited on noncontra st imaging, IMPRESSION: No acute findings within the abdomen or pelvis. No hydronephrosis bilaterally. Nonobstructed bowel with normal appendix. Additional findings as detailed above Dictated by: Francisca Andersen MD on 08/25/2019 8:02 PM. .
--- NOTE | 2019-08-27 01:57 | Emergency Department Record ---
History of Present Illness - General Chief Complaint: General Stated Complaint: LEFT FLANK PAIN,LEFT ARM NUMBNESS,CHEST EDGAR Time Seen by Provider: 08/25/19 18:35 Source: Patient Mode of Arrival: Ambulatory Limitations: No limitations - History of Present Illness Location: Left, Upper extremity, Abdomen Quality: Constant Improves with: None Worsens with: None Associated Symptoms: Denies other symptoms - Ronald Coma Scale Eye Response: (4) Open spontaneously Motor Response: (6) Obeys commands Verbal Response: (5) Oriented [place] Total: 15 - Related Data Home Medications Medication Instructions Recorded Confirmed Last Taken No Home Med [NO HOME MEDS] 08/25/19 08/25/19 Unknown Allergies Allergy/AdvReac Type Severity Reaction Status Date / Time red dye Allergy rash Verified 08/25/19 17:30 acetaminophen [From Tylenol] AdvReac vomiting Verified 08/25/19 17:30 Travel Screening - Travel/Exposure Within Last 30 Days Have you traveled within the last 30 days?: No - Travel/Exposure Within Last Year Have you traveled outside the [place] in the last year?: No - Additonal Travel Details Have you been exposed to anyone with a communicable illness?: No - Travel Symptoms Symptom Screening: None Review of Systems Reviewed: No additional complaints except as noted below Constitutional: Reports: As per HPI. Denies: Chills, Fever, Malaise, Night sweats, Weakness, Weight change Eyes: Reports: As per HPI. Denies: Eye discharge, Eye pain, Photophobia, Vision change ENT: Reports: As per HPI. Denies: Congestion, Dental pain, Ear pain, Epistaxis, Hearing loss, Throat pain Respiratory: Reports: As per HPI. Denies: Cough, Dyspnea, Hemoptysis, Stridor, Wheezes Cardiovascular: Reports: As per HPI. Denies: Arrhythmia, Chest pain, Dyspnea on exertion, Edema, Murmurs, Orthopnea, Palpitations, Paroxysmal nocturnal dyspnea, Rheumatic Fever, Syncope Endocrine: Reports: As per HPI. Denies: Fatigue, Heat or cold intolerance, Polydipsia, Polyuria Gastrointestinal: Reports: As per HPI. Denies: Abdominal pain, Constipation, Diarrhea, Hematemesis, Hematochezia, Melena, Nausea, Vomiting Genitourinary: Reports: As per HPI. Denies: Abnormal menses, Discharge, Dyspareunia, Dysuria, Frequency, Hematuria, Incontinence, Retention, Urgency Musculoskeletal: Reports: As per HPI. Denies: Arthralgia, Back pain, Gout, Joint swelling, Myalgia, Neck pain Skin: Reports: As per HPI. Denies: Bruising, Change in color, Change in hair/nails, Lesions, Pruritus, Rash Neurological: Reports: As per HPI. Denies: Abnormal gait, Confusion, Headache, Numbness, Paresthesias, Seizure, Tingling, Tremors, Vertigo, Weakness Psychiatric: Reports: As per HPI. Denies: Anxiety, Auditory hallucinations, Depression, Homicidal thoughts, Suicidal thoughts, Visual hallucinations Hematological/Lymphatic: Reports: As per HPI. Denies: Anemia, Blood Clots, Easy bleeding, Easy bruising, Swollen glands Past Medical History - SOCIAL HISTORY Smoking Status: Current every day smoker Alcohol Use: None Drug Use: Occasional Drug Use Detail:: Marijuana - RESPIRATORY Hx Respiratory Disorders: No - CARDIOVASCULAR Hx Cardio Disorders: No - NEURO Hx Neuro Disorders: No - GI Hx GI Disorders: Yes Hx Abdominal Pain: Yes Hx Nausea/Vomiting: Yes - Hx Genitourinary Disorders: Yes Hx UTI: Yes - ENDOCRINE Hx Endocrine Disorders: No - MUSCULOSKELETAL Hx Musculoskeletal Disorders: Yes - PSYCH Hx Psych Problems: No - HEMATOLOGY/ONCOLOGY Hx Hematology/Oncology Disorders: No Family Medical History Any Significant Family History?: Yes Hx Cancer: Mother, Grandparents Physical Exam - General General Appearance: Alert, Oriented x3, Cooperative, Mild distress Limitations: No limitations - Head Head exam: Normal inspection - Eye Eye exam: Normal appearance, PERRL, EOMI Pupils: Normal accommodation - ENT ENT exam: Normal exam, Mucous membranes moist, Normal external ear exam, Normal orophraynx Ear exam: Normal external inspection. negative: External canal tenderness Nasal Exam: Normal inspection. negative: Discharge, Sinus tenderness Mouth exam: Normal external inspection, Tongue normal Teeth exam: Normal inspection. negative: Dental caries Throat exam: Normal inspection. negative: Tonsillar erythema, Tonsillar exudate - Neck Neck exam: Normal inspection, Full ROM. negative: Tenderness - Respiratory Respiratory exam: Normal lung sounds bilaterally. negative: Respiratory distress - Cardiovascular Cardiovascular Exam: Regular rate, Normal rhythm, Normal heart sounds - GI/Abdominal GI/Abdominal exam: Soft, Normal bowel sounds. negative: Tenderness - Rectal Rectal exam: Deferred - exam: Deferred - Extremities Extremities exam: Normal inspection, Full ROM, Normal capillary refill. negative: Tenderness - Back Back exam: Reports: Normal inspection, CVA tenderness (L), Full ROM. Denies: Muscle spasm, Rash noted, Tenderness - Neurological Neurological exam: Alert, CN II-XII intact, Normal gait, Oriented X3 - Psychiatric Psychiatric exam: Normal affect, Normal mood - Skin Skin exam: Dry, Intact, Normal color, Warm Course Vital Signs 08/25/19 08/25/19 17:32 20:42 Temperature 97.8 F Pulse Rate 80 Pulse Rate [ 95 H Pulse Ox Probe] Respiratory 20 Rate Blood Pressure 122/73 Blood Pressure 118/75 [Left Arm] Pulse Ox 100 97 Medical Decision Making - Lab Data Result diagrams: 08/25/19 19:14 08/25/19 19:14 Lab Results 08/25/19 08/25/19 08/25/19 Range/Units 19:14 19:14 19:14 WBC 8.5 (4.2-12.2) K/uL RBC 4.88 (3.80-5.40) M/uL Hgb 14.1 (11.6-16.0) gm/dl Hct 43.6 (35.0-47.0) % MCV 89.3 (81-97) fl MCH 28.9 (27-33) pg MCHC 32.3 (32-36) g/dl RDW 12.4 (11.5-14.5) % Plt Count 239 (130-400) K/uL MPV 9.7 (7.4-10.4) fl Gran % 62.8 (47-80) % Lymphocytes % 30.9 (16-45) % Monocytes % 4.8 (0-9) % Eosinophils % 0.9 (0-6) % Basophils % 0.6 (0-6) % Absolute Neutrophils 5.33 Sodium 138 (136-145) mmol/L Potassium 4.2 (3.4-4.5) mmol/L Chloride 97 L (98-107) mmol/L Carbon Dioxide 26.0 (22-29) mmol/L Anion Gap 15.0 (7-16) BUN 12 (6-20) mg/dL Creatinine 0.8 (0.5-0.9) mg/dL Estimated GFR > 60 mL/min Random Glucose 86 (74-109) mg/dL Calcium 9.6 (8.6-10.0) mg/dL Urine Color Yellow Urine Appearance Clear Urine pH 6.0 (5.0-8.0) Ur Specific [place] <= 1.005 (1.002-1.030) Urine Protein Negative (NEGATIVE) Urine Glucose (UA) Negative (NEGATIVE) Urine Ketones Negative (NEGATIVE) Urine Blood Large H (NEGATIVE) Urine Nitrite Negative (NEGATIVE) Urine Bilirubin Negative (NEGATIVE) Urine Urobilinogen 0.2 (0.20 - 1.00) E.U./dL Ur Leukocyte Esterase Negative (NEGATIVE) Urine RBC 3 - 6 (NONE SEEN) Urine WBC None seen (0-2/hpf) Ur Epithelial Cells 0 - 2 (FEW) Urine Bacteria None seen Disposition Clinical Impression: Numbness and tingling in left arm Abdominal pain Qualifiers: Abdominal location: left upper quadrant Qualified Code(s): R10.12 - Left upper quadrant pain Disposition: Home, Self-Care Condition: (1) Good Instructions: Acute Abdominal Pain (ED), Paresthesia (ED) Additional Instructions: follow up with family doctor . return sooner if worse Forms: Patient Portal Access Quality - Quality Measures Quality Measures: N/A - Blood Pressure Screening Does Patient Have Any of the Following: No Blood Pressure Classification: Pre-Hypertensive BP Reading Systolic Measurement: 122 Diastolic Measurement: 73 Screening for High Blood Pressure: < Pre-Hypertensive BP, F/U Documented > [G8950] Pre-Hypertensive Follow-up Interventions: Follow-up with rescreen every year.
== END 2019-08-25 20:45 | disposition home or self-care (01) ==
LOC: ER 17:23
DX: R20.0 Anesthesia of skin (principal); R10.12 Left upper quadrant pain; F17.210 Nicotine dependence, cigarettes, uncomplicated
CPT/HCPCS: 70450; 72125; 74176; 80048; 81001; 85025; 99284